=== PATIENT | male | born 1960 | race Caucasian/White ===

== ENCOUNTER 2018-10-09 11:13 | Emergency (ER) | payer SELFPAY ==
--- NOTE | 2018-10-09 12:09 | ER Document Report ---
ED Medical Screen (RME) - General Chief Complaint: Dizziness Stated Complaint: DIZZINESS/VOMITING Time Seen by Provider: 10/09/18 12:07 Mode of Arrival: Medic Information source: Patient Notes: 58-year-old male presents to ED for complaint of headache dizziness nausea vomiting spinning room and lightheaded. His blood pressure was triple over triples at home in the EMS and in the emergency room. States he was given clonidine and labetalol in the EMS blood pressure still triple of her troubles. Patient is alert oriented respirations regular and unlabored speaking in full sentences lungs are clear to auscultation. He states that the room does spin when he tries to see. When he closes his abdomen nausea vomiting is better. He is not been on any medicines for blood pressure does not have a history of blood pressure problems. He does not smoke drinks 6-12. Day and lives with his ex- as a start on a house together. Is present with his sister at this time. I have greeted and performed a rapid initial assessment of this patient. A comprehensive ED assessment and evaluation of the patient, analysis of test results and completion of medical decision making process will be conducted by an additional ED providers. Dictation of this chart was performed using voice recognition software; therefore, there may be some unintended grammatical errors. TRAVEL OUTSIDE OF THE [place] IN LAST 30 DAYS: No - Related Data Allergies/Adverse Reactions: No Known Allergies Allergy (Unverified 10/09/18 11:13) Past Medical History - Social History Frequency of alcohol use: Heavy Drug Abuse: None Renal/ Medical History: Denies: Hx Peritoneal Dialysis Physical Exam - Vital signs Vitals: Temp Pulse Resp BP Pulse Ox 98.1 F 72 18 200/102 H 96 10/09/18 11:23 10/09/18 11:23 10/09/18 11:23 10/09/18 11:23 10/09/18 11:23 Course - Vital Signs Vital signs: Temp Pulse Resp BP Pulse Ox 98.1 F 72 18 205/100 H 96 10/09/18 11:23 10/09/18 11:23 10/09/18 11:23 10/09/18 12:07 10/09/18 11:23
[2018-10-09] MEDS ORDERED: ONDANSETRON HCL 8 MG TABLET PO ONE (12:10)
[2018-10-09 12:22] LABS: ABSOLUTE LYMPHOCYTES (AUTO) 1.1 10^3/uL (0.5-4.7); ABSOLUTE MONOCYTES (AUTO) 0.4 10^3/uL (0.1-1.4); ABSOLUTE NEUT (AUTO) 5.6 10^3/uL (1.7-8.2); BASOPHILS % (AUTO) 0.6 % (0-2); HEMATOCRIT 46.4 % (37.9-51.0); HEMOGLOBIN 15.9 g/dL (13.5-17.0); MEAN CORPUSCULAR HEMOGLOBIN 30.6 pg (27.0-33.4); MEAN CORPUSCULAR HGB CONC 34.3 g/dL (32.0-36.0); MEAN CORPUSCULAR VOLUME 89 fl (80-97); MONOCYTES % (AUTO) 6.1 % (3-13); PLATELET COUNT 194 10^3/uL (150-450); RED CELL DISTRIBUTION WIDTH 13.7 % (11.5-14.0); SEGMENTED NEUTROPHILS % (AUTO) 77.3 % (42-78); TOTAL CELLS COUNTED % (AUTO) 100 %; WHITE BLOOD COUNT 7.2 10^3/uL (4.0-10.5)
[2018-10-09 12:36] LABS: ALANINE AMINOTRANSFERASE 66 U/L (21-72); ALBUMIN 4.7 g/dL (3.5-5.0); ALKALINE PHOSPHATASE 112 U/L (38-126); ANION GAP 15 (5-19); ASPARTATE AMINO TRANSFERASE 51 U/L (17-59); BILIRUBIN,DIRECT 0.4 mg/dL (0.0-0.4); BLOOD UREA NITROGEN 9 mg/dL (7-20); CALCIUM 9.1 mg/dL (8.4-10.2); CARBON DIOXIDE 27 mmol/L (22-30); CHLORIDE 99 mmol/L (98-107); GLUCOSE 143 mg/dL (75-110); LIPASE 119.9 U/L (23-300); POTASSIUM 3.9 mmol/L (3.6-5.0); SODIUM 141.2 mmol/L (137-145); TOTAL PROTEIN 8.2 g/dL (6.3-8.2)
--- NOTE | 2018-10-09 12:52 | RADIOLOGY REPORT (SQ) ---
EXAM DESCRIPTION: CHEST 2 VIEWS COMPLETED DATE/TIME: 10/09/2018 12:44 pm REASON FOR STUDY: htn dizziness, lightheaded COMPARISON: None. EXAM PARAMETERS: NUMBER OF VIEWS: two views TECHNIQUE: Digital Frontal and Lateral radiographic views of the chest acquired. RADIATION DOSE: NA LIMITATIONS: none FINDINGS: LUNGS AND PLEURA: No opacities, masses or pneumothorax. No pleural effusion. MEDIASTINUM AND HILAR STRUCTURES: No masses or contour abnormalities. HEART AND VASCULAR STRUCTURES: Heart normal size. No evidence for failure. BONES: No acute findings. Degenerative changes in the spine. HARDWARE: None in the chest. OTHER: No other significant finding. IMPRESSION: NO ACUTE RADIOGRAPHIC FINDING IN THE CHEST. TECHNICAL DOCUMENTATION: JOB ID: [id number] [employer]- All Rights Reserved Reading location - IP/workstation name: [email or web address]
[2018-10-09 13:01] LABS: CREATINE KINASE MB 2.34 ng/mL (<4.55); TROPONIN I 0.016 ng/mL
--- NOTE | 2018-10-09 13:02 | EKG REPORT ---
SEVERITY:- ABNORMAL ECG - SINUS RHYTHM PROBABLE LEFT ATRIAL ABNORMALITY NONSPECIFIC INTRAVENTRICULAR CONDUCTION DELAY LVH WITH SECONDARY REPOLARIZATION ABNORMALITY NO OLD EKGS TO COMPARE. CLINICAL CORRELATION NEEDED. : Confirmed by: Hector Elizalde MD 09-Oct-2018 13:01:48
[2018-10-09] MEDS ORDERED: THIAMINE HCL 100 MG TABLET PO ONE (15:42)
[2018-10-09] MEDS ORDERED: MECLIZINE HCL 25 MG TABLET PO ONE (15:42)
--- NOTE | 2018-10-09 15:59 | RADIOLOGY REPORT (SQ) ---
EXAM DESCRIPTION: CT HEAD WITHOUT COMPLETED DATE/TIME: 10/09/2018 3:46 pm REASON FOR STUDY: dizziness COMPARISON: None. TECHNIQUE: Axial images acquired through the brain without intravenous contrast. Images reviewed wi th bone, brain and subdural windows. Additional sagittal and coronal reconstructions were generated. Images stored on PACS. All CT scanners at this facility use dose modulation, iterative reconstruction, and/or weight based d osing when appropriate to reduce radiation dose to as low as reasonably achievable (ALARA). [facility]: Dose Right [facility]: CareDose [facility]: Dose Right [facility]: Teradose 4D [facility]: [employer]ane RADIATION DOSE: CT Rad equipment meets quality standard of care and radiation dose reduction techniq ues were employed. CTDIvol: 53.2 mGy. DLP: 991 mGy-cm. mGy. LIMITATIONS: None. FINDINGS: VENTRICLES: Normal size and contour. CEREBRUM: No masses. No hemorrhage. No midline shift. No evidence for acute infarction. Normal gra y/white matter differentiation. No areas of low density in the white matter. CEREBELLUM: No masses. No hemorrhage. No alteration of density. No evidence for acute infarction. EXTRAAXIAL SPACES: No fluid collections. No masses. ORBITS AND GLOBE: No intra- or extraconal masses. Normal contour of globe without masses. CALVARIUM: No fracture. PARANASAL SINUSES: No fluid or mucosal thickening. SOFT TISSUES: No mass or hematoma. OTHER: No other significant finding. IMPRESSION: NO ACUTE INTRACRANIAL IMAGING FINDINGS. EVIDENCE OF ACUTE STROKE: NO. COMMENT: Quality ID # [id number]: Final reports with documentation of one or more dose reduction techniques (e.g., Automated exposure control, adjustment of the mA and/or kV according to patient size, use of iterative reconstruction technique) TECHNICAL DOCUMENTATION: JOB ID: [id number] [employer]- All Rights Reserved Reading location - IP/workstation name: [email or web address]
--- NOTE | 2018-10-09 16:18 | ER Document Report ---
ED General - General Chief Complaint: Dizziness Stated Complaint: DIZZINESS/VOMITING Time Seen by Provider: 10/09/18 12:07 Primary Care Provider: [facility] [Provider Group] - Follow up in 3-5 days YING DUARTE MD [COMMUNITY BASED STAFF] - Follow up in 3-5 days Mode of Arrival: Medic Notes: Patient is a 58-year-old male, with history of chronic alcohol use that presents to the emergency department for chief complaint of lightheadedness, dizziness. Patient states he had a few episodes of dizziness yesterday, particularly with lifting his head up quickly, and standing up quickly, he did not think much of it, but it seemed to be worse this morning, so he came to the emergency de partment. It has been intermittent. He has noted some room spinning associated with this as well. He denies having any syncopal episodes. He is aware that his blood pressure is high, but does not take any medications, he does not have a primary care physician. He drinks about 6-12 beers on a daily basis. Denies history of stroke, cardiac dysrhythmias, and he denies today any chest pain, shortness of breath, difficulty breathing, but did have nausea and vomiting associated with his dizziness earlier. He denies having any abdominal pain associated with this. Past Medical History: Hypertension, untreated, chronic alcohol use Past Surgical History: Denies surgical history Social History: Admits to daily alcohol use, denies current tobacco or drug use. Family History: Reviewed and noncontributory for presenting illness Allergies: Reviewed, see documented allergy list. REVIEW OF SYSTEMS: Other than noted above, the 12 point review of systems was reviewed with the patient and were negative, all pertinent findings are included in the HPI. PHYSICAL EXAMINATION: Vital signs reviewed, nursing noted reviewed. GENERAL: Well-appearing, well-nourished and in no acute distress. HEAD: Atraumatic, normocephalic. EYES: Eyes appear normal, extraocular movements intact, sclera anicteric, conjunctiva are normal. PERRLA, horizontal nystagmus noted to the left. ENT: nares patent, oropharynx clear without exudates. Moist mucous membranes. TMs appear normal bilaterally. NECK: Normal range of motion, supple without lymphadenopathy LUNGS: Breath sounds clear to auscultation bilaterally and equal. No wheezes rales or rhonchi. HEART: Regular rate and rhythm without murmurs ABDOMEN: Soft, nontender, normoactive bowel sounds. No rebound, guarding, or rigidity. No masses appreciated. EXTREMITIES: Nontender, good range of motion, no pitting or edema. NEUROLOGICAL: No focal neurological deficits. Moves all extremities spontaneously Motor and sensory grossly intact on exam. PSYCH: Normal mood, normal affect. SKIN: Warm, Dry, normal turgor, no rashes or lesions noted on exposed skin TRAVEL OUTSIDE OF THE [place] IN LAST 30 DAYS: No - Related Data Allergies/Adverse Reactions: No Known Allergies Allergy (Verified 10/09/18 12:50) Past Medical History - General Information source: Patient - Social History Smoking Status: Never Smoker Frequency of alcohol use: Heavy Drug Abuse: None Family History: Reviewed & Not Pertinent Patient has suicidal ideation: No Patient has homicidal ideation: No Renal/ Medical History: Denies: Hx Peritoneal Dialysis Physical Exam - Vital signs Vitals: Temp Pulse Resp BP Pulse Ox 98.1 F 72 18 200/102 H 96 10/09/18 11:23 10/09/18 11:23 10/09/18 11:23 10/09/18 11:23 10/09/18 11:23 Course - Re-evaluation Re-evalutation: Patient seen and examined vital signs reviewed. Laboratory data and/or imaging were ordered as appropriate for the patient's presenting symptoms and complaint, with consideration of any critical or life threatening conditions that may be associated with their obtained history and exam as noted above. Patient was treated with labetalol in route by EMS, his blood pressure was in the 240s initially per EMS, but has come down to the 180s systolic, will discharge the patient with a prescription for losartan 50 mg, to start him on a regimen for his blood pressure, provided 2 weeks worth, patient's renal function was normal today. Results were reviewed when available and demonstrated negative CT imaging, blood work was unremarkable, no signs of endorgan damage. The patient was re-evaluated and was improved after Zofran, meclizine, he was also provided thiamine. Evaluation was most consistent with dizziness, uncontrolled hypertension, will start the patient on losartan as noted above, he also desires to quit alcohol, and I will provide him with a taper of chlordiazepoxide, to take to wean him safely off of alcohol, I advised him not to drink alcohol while taking this medication. I also advised him to take [id number] thiamine and folic acid as well as a multivitamin. He is also given a prescription for meclizine, he is encouraged if his symptoms worsen in any way, or not improving to return to the emergency department sooner. Results were discussed with the patient at this point, after careful co nsideration I feel that that patient can be discharged from the emergency department, the patient was educated treatments and reasons to return to the emergency department based on their presumed diagnosis as noted above, they were advised to followup with a primary care physician in 2-3 days. Patient was agreeable to plan of care. *Note is created using voice recognition software and may contain spelling, syntax or grammatical errors. Laboratory 10/09/18 10/09/18 10/09/18 10:30 10:30 10:30 WBC 7.2 RBC 5.20 Hgb 15.9 Hct 46.4 MCV 89 MCH 30.6 MCHC 34.3 RDW 13.7 Plt Count 194 Seg Neutrophils % 77.3 Lymphocytes % 16.0 Monocytes % 6.1 Eosinophils % 0.0 Basophils % 0.6 Absolute Neutrophils 5.6 Absolute Lymphocytes 1.1 Absolute Monocytes 0.4 Absolute Eosinophils 0.0 Absolute Basophils 0.0 Sodium 141.2 Potassium 3.9 Chloride 99 Carbon Dioxide 27 Anion Gap 15 BUN 9 Creatinine 0.68 Est GFR ( Amer) > 60 Est GFR (Non-Af Amer) > 60 Glucose 143 H Calcium 9.1 Total Bilirubin 1.0 Direct Bilirubin 0.4 Neonat Total Bilirubin Not Reportable Neonat Direct Bilirubin Not Reportable Neonat Indirect Bili Not Reportable AST 51 ALT 66 Alkaline Phosphatase 112 CK-MB (CK-2) 2.34 Troponin I 0.016 Total Protein 8.2 Albumin 4.7 Lipase 119.9 Chest X-Ray 10/09/18 12:09 IMPRESSION: NO ACUTE RADIOGRAPHIC FINDING IN THE CHEST. Head CT 10/09/18 15:16 IMPRESSION: NO ACUTE INTRACRANIAL IMAGING FINDINGS. EVIDENCE OF ACUTE STROKE: NO. - Vital Signs Vital signs: Temp Pulse Resp BP Pulse Ox 98.1 F 72 18 184/97 H 94 10/09/18 11:23 10/09/18 11:23 10/09/18 15:01 10/09/18 15:00 10/09/18 15:01 - Laboratory Result Diagrams: 10/09/18 10:30 10/09/18 10:30 Laboratory results interpreted by me: 10/09/18 10/09/18 10:30 16:30 Glucose 143 H Urine Protein 30 H Urine Glucose (UA) 50 H Discharge - Discharge Clinical Impression: Dizziness, Uncontrolled hypertension Condition: Stable Disposition: HOME, SELF-CARE Instructions: Dizziness ([facility]), High Blood Pressure, Requiring Treatment ([facility]) Additional Instructions: Please follow-up with the primary care physician, recommend starting the blood pressure medication has been prescribed to, taking it once daily, he also r ecommend if you are going to stop drinking alcohol to use the chlordiazepoxide taper that has been prescribed to you, I also recommend taking the prescribed medication to help with your dizziness, if your symptoms are not improving or worsening over the next few days so I would encourage you to return to the emergency department immediately. I do also recommend you start taking mpud-yym-bfxwyuu thiamine (B1 vitamin) 100 mg daily, a folic acid supplement 1 mg daily, and a multivitamin daily. Prescriptions: Chlordiazepoxide HCl 25 mg PO ASDIR #42 capsule Losartan Potassium [Cozaar] 50 mg PO DAILY #15 tablet Meclizine HCl [Motion Sickness Relief] 25 mg PO TID PRN #15 tablet PRN Reason: Dizziness Referrals: YING DUARTE MD [COMMUNITY BASED STAFF] - Follow up in 3-5 days [facility] [Provider Group] - Follow up in 3-5 days
[2018-10-09] MEDS ORDERED: LOSARTAN POTASSIUM 50 MG TABLET PO ONE (16:41)
[2018-10-09 16:51] LABS: APPEARANCE,URINE SLIGHTLY-CLOUDY; BILIRUBIN,URINE NEGATIVE (NEGATIVE); COLOR,URINE YELLOW; GLUCOSE, URINE 50 mg/dL (NEGATIVE); KETONES,URINE NEGATIVE (NEGATIVE); LEUKOCYTE ESTERASE,URINE NEGATIVE (NEGATIVE); NITRITE,URINE NEGATIVE (NEGATIVE); PROTEIN,URINE 30 mg/dL (NEGATIVE); URINE SPECIFIC GRAVITY 1.019; UROBILINOGEN,URINE NEGATIVE mg/dL (<2.0)
[2018-10-09 17:19] VITALS: BP 187/111
== END 2018-10-09 17:27 | disposition home or self-care (01) ==
LOC: ER 11:13
DX: I10 Essential (primary) hypertension (principal); R42 Dizziness and giddiness
CPT/HCPCS: 93005; 99285; 36415; 82553; 83690; 85025; 80053; 81001; 84484; 71046; 70450; 93010; S0119

== ENCOUNTER 2018-10-12 13:22 | Emergency (ER) | payer SELFPAY ==
--- NOTE | 2018-10-12 14:06 | ER Document Report ---
ED Medical Screen (RME) - General Chief Complaint: High Blood Pressure Stated Complaint: BLOOD PRESSURE ISSUE Time Seen by Provider: 10/12/18 13:50 Mode of Arrival: Ambulatory Information source: Patient Notes: Patient is a 58-year-old male with hypertension presenting to the emergency department with elevated blood pressure. Patient reports he was recently diagnosed and started on medications for his hypertension. He states that he does not believe the medications are working yet. He is also currently being treated for vertigo. He states the meclizine he is taking is working without difficulty. He felt a little dizziness earlier so he had a friend check his blood pressure and found it to be 230/120. Patient is currently asymptomatic. Exam: Heart sounds S1-S2 present with no ectopy noted. Lung sounds clear and equal bilaterally. I have greeted and performed a rapid initial assessment of this patient. A comprehensive ED assessment and evaluation of the patient, analysis of test results and completion of the medical decision making process will be conducted by additional ED providers. Dictation of this chart was performed using voice recognition software; therefore, there may be some unintended grammatical errors. TRAVEL OUTSIDE OF THE [place] IN LAST 30 DAYS: No - Related Data Allergies/Adverse Reactions: No Known Allergies Allergy (Verified 10/09/18 12:50) Past Medical History - Social History Frequency of alcohol use: Heavy Renal/ Medical History: Denies: Hx Peritoneal Dialysis Physical Exam - Vital signs Vitals: Temp Pulse Resp BP Pulse Ox 97.4 F 71 16 217/107 H 96 10/12/18 13:28 10/12/18 13:28 10/12/18 13:28 10/12/18 13:28 10/12/18 13:28 Course - Vital Signs Vital signs: Temp Pulse Resp BP Pulse Ox 97.4 F 71 16 217/107 H 96 10/12/18 13:28 10/12/18 13:28 10/12/18 13:28 10/12/18 13:28 10/12/18 13:28
[2018-10-12] MEDS ORDERED: NIFEDIPINE 10 MG CAPSULE PO ONE (14:14)
--- NOTE | 2018-10-12 14:30 | ER Document Report ---
ED General - General Chief Complaint: High Blood Pressure Stated Complaint: BLOOD PRESSURE ISSUE Time Seen by Provider: 10/12/18 13:50 Mode of Arrival: Ambulatory Notes: 58-year-old male with history of hypertension presents with elevated blood pressure and mild dizziness. The patient noted he had blood pressure in the past but was only recently started on blood pressure medicine several days ago. Blood pressure still elevated. He is checked his blood pressure is felt a little bit of dizziness. No headache no extremity numbness tingling or weakness. No blurred vision no chest pain or shortness of breath. He called his doctor who instructed him to come here to the ER. TRAVEL OUTSIDE OF THE [place] IN LAST 30 DAYS: No - Related Data Allergies/Adverse Reactions: No Known Allergies Allergy (Verified 10/09/18 12:50) Past Medical History - General Information source: Patient - Social History Smoking Status: Never Smoker Frequency of alcohol use: Heavy Family History: Reviewed & Not Pertinent Patient has suicidal ideation: No Patient has homicidal ideation: No Renal/ Medical History: Denies: Hx Peritoneal Dialysis Review of Systems - Review of Systems Constitutional: denies: Chills, Fever Cardiovascular: Dizziness. denies: Chest pain, Dyspnea Gastrointestinal: denies: Abdominal pain, Nausea, Vomiting Neurological/Psychological: denies: Headaches -: Yes All other systems reviewed and negative Physical Exam - Vital signs Vitals: Temp Pulse Resp BP Pulse Ox 97.4 F 71 16 217/107 H 96 10/12/18 13:28 10/12/18 13:28 10/12/18 13:28 10/12/18 13:28 10/12/18 13:28 - Notes Notes: GENERAL_APPEARANCE: well_nourished, alert, cooperative VITALS: reviewed, see vital signs table. HEAD: no_swelling\tenderness on the head. EYES: PERRL, EOMI, conjunctiva_clear. NOSE: no_nasal_discharge. MOUTH: (-)decreased moisture. THROAT: no_tonsilar_inflammation, no_airway_obstruction. no_lymphadenopathy NECK: supple, no_neck_tenderness, (-)thyromegaly. BACK: no_back_tenderness. CHEST_WALL: no_chest_tenderness. LUNGS: no_wheezing, no_rales, no_rhonchi, (-)accessory muscle use, good air exchange bilateral. HEART: normal_rate, normal_rhythm, normal_S1, normal_S2, (-)S3, (-)S4, no_murmur, no_rub. ABDOMEN: normal_BS, soft, no_abd_tenderness, (-)guarding, (-)rebound, no_organomegaly, no_abd_masses. EXTREMITIES: good pulses in all_extremities, no_swelling\tenderness in the extremities, no_edema. SKIN: warm, dry, good_color, no_rash. MENTAL_STATUS: speech_clear, oriented_X_3, normal_affect, responds_ appropriately to questions. NEURO: Neg Motor or Sensory Deficits on exam, CN 2-12 intact, DTR 2+ symmetric x 4, No cerbellar signs Course - Re-evaluation Re-evalutation: 10/12/18 14:32 58-year-old male presents the emerge from with elevated blood pressure. Patient was started on losartan HCTZ 50 mg 12-/2 earlier in the week. Blood pressure still elevated patient felt a little bit of dizziness earlier today and is come in for evaluation. He denies any chest pain denies shortness of breath denies abdominal pain denies headache or blurred vision or extremity numbness tingling or weakness. 10/12/18 16:30 Patient is feeling much better blood pressures down to 175/93. I will add nifedipine to the patient's regimen. Write him for some additional prescriptions he still getting primary care sorted out. He has no neuro deficits is feeling much better. Lab work is fairly reassuring. - Vital Signs Vital signs: Temp Pulse Resp BP Pulse Ox 97.4 F 71 16 175/93 H 96 10/12/18 13:28 10/12/18 13:28 10/12/18 13:28 10/12/18 16:01 10/12/18 13:28 - Laboratory Result Diagrams: 10/12/18 14:46 10/12/18 14:46 - EKG Interpretation by Id EKG shows normal: Sinus rhythm Rate: Normal Rhythm: NSR Additional EKG results interpreted by me: 10/12/18 16:[address] abnormalities however the patient does have LVH likely due to years of untreated hypertension. Discharge - Discharge Clinical Impression: Uncontrolled hypertension, Dizziness Condition: Good Disposition: HOME, SELF-CARE Instructions: High Blood Pressure, Requiring Treatment ([facility]) Prescriptions: Losartan/Hydrochlorothiazide [Losartan-Hctz 50-12.5 mg Tab] 1 each PO DAILY #30 tablet Nifedipine [Nifedipine ER] 30 mg PO DAILY #30 tablet.er
--- NOTE | 2018-10-12 14:40 | RADIOLOGY REPORT (SQ) ---
EXAM DESCRIPTION: CHEST SINGLE VIEW COMPLETED DATE/TIME: 10/12/2018 2:32 pm REASON FOR STUDY: dizzy htn COMPARISON: None. NUMBER OF VIEWS: One view. TECHNIQUE: Single frontal radiographic view of the chest acquired. LIMITATIONS: None. FINDINGS: LUNGS AND PLEURA: No opacities, masses or pneumothorax. No pleural effusion. MEDIASTINUM AND HILAR STRUCTURES: No masses. Contour normal. HEART AND VASCULAR STRUCTURES: Heart normal in size. Normal vasculature. BONES: No acute findings. HARDWARE: None in the chest. OTHER: No other significant finding. IMPRESSION: NO SIGNIFICANT RADIOGRAPHIC FINDING IN THE CHEST. TECHNICAL DOCUMENTATION: JOB ID: [id number] [employer]- All Rights Reserved Reading location - IP/workstation name: [email or web address]
[2018-10-12 14:56] LABS: ABSOLUTE EOSINOPHILS # (AUTO) 0.1 10^3/uL (0.0-0.6); ABSOLUTE LYMPHOCYTES (AUTO) 2.3 10^3/uL (0.5-4.7); ABSOLUTE MONOCYTES (AUTO) 0.8 10^3/uL (0.1-1.4); ABSOLUTE NEUT (AUTO) 3.6 10^3/uL (1.7-8.2); BASOPHILS % (AUTO) 0.3 % (0-2); EOSINOPHILS % (AUTO) 2.1 % (0-6); HEMATOCRIT 44.7 % (37.9-51.0); HEMOGLOBIN 15.4 g/dL (13.5-17.0); LYMPHOCYTES % (AUTO) 33.7 % (13-45); MEAN CORPUSCULAR HEMOGLOBIN 30.5 pg (27.0-33.4); MEAN CORPUSCULAR HGB CONC 34.3 g/dL (32.0-36.0); MEAN CORPUSCULAR VOLUME 89 fl (80-97); MONOCYTES % (AUTO) 11.1 % (3-13); PLATELET COUNT 175 10^3/uL (150-450); RED BLOOD COUNT 5.04 10^6/uL (4.35-5.55); RED CELL DISTRIBUTION WIDTH 13.2 % (11.5-14.0); SEGMENTED NEUTROPHILS % (AUTO) 52.8 % (42-78); TOTAL CELLS COUNTED % (AUTO) 100 %; WHITE BLOOD COUNT 6.9 10^3/uL (4.0-10.5)
[2018-10-12 15:16] LABS: APPEARANCE,URINE CLEAR; BILIRUBIN,URINE NEGATIVE (NEGATIVE); COLOR,URINE STRAW; GLUCOSE, URINE NEGATIVE (NEGATIVE); KETONES,URINE NEGATIVE (NEGATIVE); LEUKOCYTE ESTERASE,URINE NEGATIVE (NEGATIVE); NITRITE,URINE NEGATIVE (NEGATIVE); PROTEIN,URINE NEGATIVE (NEGATIVE); URINE SPECIFIC GRAVITY 1.003; UROBILINOGEN,URINE NEGATIVE mg/dL (<2.0)
[2018-10-12 15:16] LABS: ANION GAP 9 (5-19); BLOOD UREA NITROGEN 15 mg/dL (7-20); CALCIUM 9.6 mg/dL (8.4-10.2); CARBON DIOXIDE 29 mmol/L (22-30); CHLORIDE 103 mmol/L (98-107); GLUCOSE 95 mg/dL (75-110); POTASSIUM 4.2 mmol/L (3.6-5.0); SODIUM 141.3 mmol/L (137-145)
[2018-10-12 17:10] VITALS: BP 169/91
--- NOTE | 2018-10-12 20:04 | EKG REPORT ---
SEVERITY:- ABNORMAL ECG - SINUS RHYTHM NONSPECIFIC INTRAVENTRICULAR CONDUCTION DELAY LEFT VENTRICULAR HYPERTROPHY : Confirmed by: Hector Elizalde MD 12-Oct-2018 20:03:35
== END 2018-10-12 17:10 | disposition home or self-care (01) ==
LOC: ER 13:22
DX: I11.9 Hypertensive heart disease without heart failure (principal); R42 Dizziness and giddiness
CPT/HCPCS: 93005; 99284; 36415; 85025; 80048; 81001; 71045; 93010; J3490